=== PATIENT | male | born 1975 | race Hispanic/Latino ===

== ENCOUNTER 2024-02-08 00:27 | Emergency (ER) | payer SELFPAY ==
[~2024-02-08] VITALS: Ht 170.2 cm; Wt 112.5 kg
[2024-02-08 00:31] VITALS: BP 156/89; PULSE 78; RESP 20; TEMP 97.9; O2SAT 98
[2024-02-08] MEDS: HYDROcodone/acetaMINOPHEN 10/325 MG TAB PO ONE (00:36)
[2024-02-08] MEDS: teTANUS/diphthERIA TOXOID [ADULT] 0.5 ML VIAL IM ONE (00:37)
== END 2024-02-08 00:40 | disposition home or self-care (01) ==
LOC: EDH 00:27
DX: S91.331A Puncture wound without foreign body, right foot, initial encounter (principal); Z88.6 Allergy status to analgesic agent; W18.31XA Fall on same level due to stepping on an object, initial encounter; Y93.89 Activity, other specified; Y92.89 Other specified places as the place of occurrence of the external cause; Y99.8 Other external cause status
CPT/HCPCS: 90471; 90714